=== PATIENT | female | born 1975 | race American Indian/Alaskan Native ===

== ENCOUNTER 2018-01-18 20:14 | Emergency (ER) | payer MEDICAID ==
[2018-01-18 20:19] VITALS: BP 122/68
--- NOTE | 2018-01-18 21:15 | XRay Report ---
FINAL REPORT PROCEDURE: XR WRIST 3+V LT TECHNIQUE: LEFT wrist radiographs, including AP, lateral, and oblique views. CPT 67604 HISTORY: severe pain, decreased rom COMPARISON: No prior studies are available for comparison. FINDINGS: Fracture (s) and/or Dislocation(s): None . Alignment: Normal . Joint space(s): Normal . Soft tissues: Normal . Bone mineralization: Normal . Foreign bodies: None . IMPRESSION: Normal Examination.
[2018-01-19] MEDS ORDERED: TYLENOL PO ONE (00:39)
[2018-01-19] MEDS ORDERED: ULTRAM PO ONE (00:39)
--- NOTE | 2018-01-19 00:39 | Emergency Department Report ---
Upper Extremity - HPI Chief Complaint: Extremity Injury, Upper Stated Complaint: LEFT ARM PAIN Time Seen by Provider: 01/19/18 00:22 Upper Extremity: Left Forearm, Left Wrist Occurred When: 4 Days Mechanism: Unsure Severity: moderate Symptoms: Yes Pain with Movement, No Deformity, No Limited Range of Movement, No Numbness, No Weakness, No Swelling, No Bruising/Ecchymosis, No Laceration or Abrasion Other History: This is a 42-year-old female, right-hand dominant, does a lot of heavy lifting for work, reports that she is not , presents to the ER with nontraumatic left medial distal forearm pain and wrist pain. The pain is sharp and electric-like in nature, and occasionally radiates to the left pinky. It increases with palpation, range of motion, body shop supervisor, and decreases with rest. No other injuries. No other complaints. ED Review of Systems ROS: Stated complaint: LEFT ARM PAIN Other details as noted in HPI Comment: All other systems reviewed and negative ED Past Medical Hx - Past Medical History Hx Asthma: Yes - Surgical History Additional Surgical History: tubiligation - Social History Smoking Status: Former Smoker Substance Use Type: Alcohol - Medications Home Medications: Home Medications Medication Instructions Recorded Confirmed Last Taken Type Acetaminophen [Tylenol Arthritis] 650 mg PO Q6HR PRN #30 tablet.er 01/19/18 Unknown Rx traMADol [Ultram 50 MG tab] 50 mg PO Q6HR PRN #15 tablet 01/19/18 Unknown Rx Upper Extremity Exam - Exam General: Vital signs noted. No distress. Alert and acting appropriately. 2+ pulses noted in the bilateral upper extremities. thumb opposition is intact to the left upper extremity, flexion, extension, circumduction intact to left wrist, appropriate capillary refill is noted, the lumbricals intact, compartments soft, no redness, pus or streaking. Sensation intact to light touch in the deltoid, median, radial, ulnar distribution Extraocular movements intact. Tongue midline. No facial droop. Facial sensation intact to light touch in the V1, V2, V3 distribution bilaterally. 5 and 5 strength in 4 extremities.. Sensation is intact to light touch in 4 extremities. Gait within normal limits. Head and Torso: No HEENT Abnormality, No Neck Tenderness, No Chest/Lungs Abnormality, No Abdominal Tenderness, No Back Tenderness Shoulder Exam: Yes Normal Range of Motion in Shoulder, No Shoulder Tenderness, No Clavicle Tenderness, No Shoulder Deformity, No AC Joint Tenderness Arm Exam: No Arm/Humerus Tenderness, No Arm Deformity Elbow: Yes Normal Range of Motion in Elbow, No Elbow Tenderness, No Elbow Deformity Forearm: Yes Pain with Pronation, Yes Pain with Supination, No Forearm Tenderness, No Forearm Deformity Wrist: Yes Wrist Tenderness, Yes Normal ROM in Wrist, No Wrist Deformity, No Snuffbox Tenderness, No Pain with Axial Thumb Compression Hand: Yes Normal ROM in Digit(s), No Hand Tenderness, No Hand Deformity, No Digit Tenderness, No Digit(s) Deformity, No Tendon Dysfunction CMS Exam: No Broken Skin, No Normal Distal Pulses, No Normal Capillary Refill, No Normal Distal Sensation ED Course Vital Signs 01/18/18 01/18/18 20:14 20:25 Temperature 98.4 F 98.4 F Pulse Rate 90 90 Respiratory 18 18 Rate Blood Pressure 122/68 122/68 O2 Sat by Pulse 96 100 Oximetry ED Medical Decision Making - Lab Data Vital Signs 01/18/18 01/18/18 01/19/18 20:14 20:25 00:48 Temperature 98.4 F 98.4 F Pulse Rate 90 90 Respiratory 18 18 18 Rate Blood Pressure 122/68 122/68 O2 Sat by Pulse 96 100 Oximetry - Radiology Data Radiology results: report reviewed, image reviewed X-ray of the left wrist: No fracture or dislocation - Medical Decision Making Differential diagnosis, including but not limited to: Sprain, strain, fracture, dislocation, tendinopathy, peripheral neuropathy, carpal tunnel Assessment and plan: 42-year-old female with distal forearm pain, mostly starting at the ulnar styloid process, no redness, pus or streaking, compartments soft, tendon function intact, no fracture or dislocation, neurologically intact, patient may benefit from outpatient occupational therapy. She will be placed in a volar splint, she will be given pain medication, and instructed to follow up with outpatient orthopedics or primary care. Critical care attestation.: If time is entered above; I have spent that time in minutes in the direct care of this critically ill patient, excluding procedure time. ED Disposition Clinical Impression: Left forearm pain Disposition: - TO HOME OR SELFCARE Is pt being admited?: No Does the pt Need Aspirin: No Condition: Stable Instructions: Tendinitis (ED) Additional Instructions: Rest, and avoid heavy lifting. Avoid strenuous physical activity. Take pain medication as directed. Follow-up with the primary care doctor orthopedist, gear design engineer, or sports medicine nonsurgical specialists as soon as possible for outpatient referral to occupational therapy. Return to the ER right away with new pain, worsened pain, migration of pain, weakness, numbness, unsteady gait, projectile vomiting, change in mental status, inability to tolerate liquid feeds. Referrals: MARK SANDS MD [Primary Care Provider] - 3-5 Days JOSE CEJA MD [Staff Physician] - 3-5 Days Forms: Work/School Release Form(ED)
== END 2018-01-19 02:00 | disposition home or self-care (01) ==
LOC: ED 20:14
DX: M79.632 Pain in left forearm (principal); M25.532 Pain in left wrist; J45.909 Unspecified asthma, uncomplicated; Z87.891 Personal history of nicotine dependence; Z98.51 Tubal ligation status; Z88.6 Allergy status to analgesic agent

== ENCOUNTER 2019-11-30 19:43 | Emergency (ER) | payer MEDICAID, OTHER ==
[2019-11-30 19:50] VITALS: BP 121/61
--- NOTE | 2019-11-30 21:12 | Event Note ---
ED Screening Note Date of service: 11/30/19 Time: 21:06 ED Screening Note: Patient is a A0 AA female who is s/p BTL 9 years ago presents to the ED with c/o heavy vaginal bleeding with LLQ abdominal pain x 3 days. Patient states that LMP was about 2 weeks and was normal. Patient states that vaginal bleeding worse in the morning and improves at day time. Patient denies dizziness, dysuria, vaginal discharge, diarrhea, headache, low back pain, headache, fever and chills. This initial assessment/diagnostic orders/clinical plan/treatment(s) is/are subject to change based on patients health status, clinical progression and re- assessment by fellow clinical providers in the ED. Further treatment and workup at subsequent clinical providers discretion. Patient/guardian urged not to elope from the ED as their condition may be serious if not clinically assessed and managed. Initial orders include: CBC, CMP, UA, Urine hCG, transvagianl US
[2019-11-30 23:27] LABS: Bilirubin,Urine NEG (Negative); Blood,Urine MOD (Negative); Color,Urine Yellow (Yellow); Mucus,Urine FEW /HPF; Protein,Urine <15 mg/dL mg/dL (Negative); Urobilinogen,Urine < 2.0 mg/dL (<2.0)
[2019-11-30 23:31] LABS: Basophils # (Auto) 0.1 K/mm3 (0.0-0.1); Basophils % (Auto) 1.4 % (0.0-1.8); Eosinophils # (Auto) 0.3 K/mm3 (0.0-0.4); Eosinophils % (Auto) 3.9 % (0.0-4.3); Hematocrit 38.3 % (30.3-42.9); Hemoglobin 12.4 gm/dl (10.1-14.3); Lymphocytes # (Auto) 2.9 K/mm3 (1.2-5.4); Lymphocytes % (Auto) 43.6 % (13.4-35.0); Mean Corpuscular HGB Conc 32 % (30-34); Mean Corpuscular Volume 86 fl (79-97); Monocytes # (Auto) 0.4 K/mm3 (0.0-0.8); Monocytes % (Auto) 6.6 % (0.0-7.3); Platelet Count 254 K/mm3 (140-440); Red Blood Count 4.45 M/mm3 (3.65-5.03); Red Cell Distribution Width 13.3 % (13.2-15.2)
[2019-11-30 23:47] LABS: Alanine Aminotransferase 12 units/L (7-56); Albumin 4.3 g/dL (3.9-5); BUN/Creatinine Ratio 13; Blood Urea Nitrogen 10 mg/dL (7-17); Calcium 10.1 mg/dL (8.4-10.2); Hemolysis Index 11
--- NOTE | 2019-12-01 01:41 | Ultrasound Report ---
Pelvic Ultrasound HISTORY: pelvic pain, vaginal bleeding. TECHNIQUE: Grayscale and color imaging performed. COMPARISON: None FINDINGS: Uterus measures 8.2 x 5.5 x 7.2 cm with endometrial complex measuring 9 mm. Both ovaries ar e normal size and appearance with preserved blood flow. No acute abnormality identified. No free flui d. IMPRESSION: Unremarkable exam. Signer Name: Ricky Quevedo MD Signed: 12/01/2019 1:36 AM Workstation Name: [id number]
[2019-12-01] MEDS ORDERED: traMADol 50 MG TAB PO ONE (01:49)
--- NOTE | 2019-12-01 01:54 | Emergency Department Report ---
ED Abdominal Pain HPI - General Chief Complaint: Abdominal Pain Stated Complaint: LOWER ABDOMEN PAIN/BLEEDING Time Seen by Provider: 12/01/19 01:08 Source: patient Mode of arrival: Ambulatory Limitations: No Limitations - History of Present Illness Initial Comments: Patient is a A0 AA female who is s/p BTL 9 years ago presents to the ED with c/o heavy vaginal bleeding with LLQ abdominal pain x 3 days. Patient states that LMP was about 2 weeks and was normal. Patient states that vaginal bleeding worse in the morning and improves at day time. Patient denies dizziness, dysuria, vaginal discharge, diarrhea, headache, low back pain, headache, fever and chills. symptoms rated at 3/10 , symptoms exacerbated by palpation, syptoms relieved by nothing tried. MD Complaint: abdominal pain Onset/Timin -: days(s) Location: LLQ Radiation: LLQ Migration to: LUQ Severity: moderate Severity scale (0 -10): 4 Quality: aching Improves With: nothing Worsens With: nothing Associated Symptoms: dysuria. denies: nausea, vomiting, diarrhea, fever, chills, constipation - Related Data LMP (females 10-50): 1 month Previous Rx's Medication Instructions Recorded Last Taken Type Acetaminophen [Tylenol Arthritis] 650 mg PO Q6HR PRN #30 tablet.er 01/19/18 Unknown Rx traMADoL [Ultram 50 MG tab] 50 mg PO Q6HR PRN #15 tablet 01/19/18 Unknown Rx Fluconazole [Diflucan TAB] 150 mg PO ONCE #1 tablet 12/01/19 Unknown Rx Ibuprofen [Motrin 800 MG tab] 800 mg PO Q8HR PRN #30 tablet 12/01/19 Unknown Rx Nitrofurantoin [place]/M-Cryst 100 mg PO BID 7 Days #14 capsule 12/01/19 Unknown Rx [Macrobid CAP] Allergies Allergy/AdvReac Type Severity Reaction Status Date / Time aspirin Allergy Unknown Verified 01/18/18 20:28 ED Review of Systems ROS: Stated complaint: LOWER ABDOMEN PAIN/BLEEDING Other details as noted in HPI Constitutional: denies: chills, fever Eyes: denies: eye pain, eye discharge, vision change ENT: denies: ear pain, throat pain Respiratory: denies: cough, shortness of breath, wheezing Cardiovascular: denies: chest pain, palpitations Endocrine: no symptoms reported Gastrointestinal: abdominal pain (llq), vomiting. denies: nausea, diarrhea Genitourinary: dysuria, frequency. denies: urgency, discharge Musculoskeletal: denies: back pain, joint swelling, arthralgia Skin: denies: rash, lesions Neurological: denies: headache, weakness, paresthesias Psychiatric: denies: anxiety, depression Hematological/Lymphatic: denies: easy bleeding, easy bruising ED Past Medical Hx - Past Medical History Hx Asthma: Yes - Surgical History Additional Surgical History: tubiligation - Social History Smoking Status: Never Smoker Substance Use Type: None - Medications Home Medications: Home Medications Medication Instructions Recorded Confirmed Last Taken Type Acetaminophen [Tylenol Arthritis] 650 mg PO Q6HR PRN #30 tablet.er 01/19/18 Unknown Rx traMADoL [Ultram 50 MG tab] 50 mg PO Q6HR PRN #15 tablet 01/19/18 Unknown Rx Fluconazole [Diflucan TAB] 150 mg PO ONCE #1 tablet 12/01/19 Unknown Rx Ibuprofen [Motrin 800 MG tab] 800 mg PO Q8HR PRN #30 tablet 12/01/19 Unknown Rx Nitrofurantoin [place]/M-Cryst 100 mg PO BID 7 Days #14 capsule 12/01/19 Unknown Rx [Macrobid CAP] ED Physical Exam - General Limitations: No Limitations General appearance: alert, in no apparent distress - Head Head exam: Present: atraumatic, normocephalic - Eye Eye exam: Present: normal appearance, PERRL, EOMI Pupils: Present: normal accommodation - ENT ENT exam: Present: mucous membranes moist - Neck Neck exam: Present: normal inspection - Respiratory Respiratory exam: Present: normal lung sounds bilaterally. Absent: respiratory distress - Cardiovascular Cardiovascular Exam: Present: regular rate, normal rhythm, normal heart sounds. Absent: systolic murmur, diastolic murmur, rubs, gallop - GI/Abdominal GI/Abdominal exam: Present: soft, tenderness (LLQ ), normal bowel sounds. Absent: distended, guarding, rebound, rigid, bruit, hernia - Rectal Rectal exam: Present: deferred - Extremities Exam Extremities exam: Present: normal inspection, full ROM - Back Exam Back exam: Present: normal inspection, full ROM, CVA tenderness (L). Absent: tenderness, CVA tenderness (R), vertebral tenderness - Neurological Exam Neurological exam: Present: alert, oriented X3, CN II-XII intact, normal gait - Psychiatric Psychiatric exam: Present: normal affect, normal mood - Skin Skin exam: Present: warm, dry, intact, normal color. Absent: rash ED Course Vital Signs 11/30/19 19:48 Temperature 97.8 F Pulse Rate 88 Respiratory 20 Rate Blood Pressure 121/61 O2 Sat by Pulse 97 Oximetry ED Medical Decision Making - Lab Data Result diagrams: 11/30/19 23:11 11/30/19 23:11 Labs 11/30/19 11/30/19 11/30/19 22:30 23:11 23:11 WBC 6.7 RBC 4.45 Hgb 12.4 Hct 38.3 MCV 86 MCH 28 MCHC 32 RDW 13.3 Plt Count 254 Lymph % (Auto) 43.6 H [place] % (Auto) 6.6 Eos % (Auto) 3.9 Baso % (Auto) 1.4 Lymph # 2.9 [place] # 0.4 Eos # 0.3 Baso # 0.1 Seg Neutrophils % 44.5 Seg Neutrophils # 3.0 Sodium 140 Potassium 4.3 Chloride 103.0 Carbon Dioxide 26 Anion Gap 15 BUN 10 Creatinine 0.8 Estimated GFR > 60 BUN/Creatinine Ratio 13 Glucose 92 Calcium 10.1 Total Bilirubin < 0.20 AST 17 ALT 12 Alkaline Phosphatase 57 Total Protein 7.7 Albumin 4.3 Albumin/Globulin Ratio 1.3 HCG, Qual Urine Color Yellow Urine Turbidity Slightly-cloudy Urine pH 7.0 Ur Specific [place] 1.020 Urine Protein <15 mg/dl Urine Glucose (UA) Neg Urine Ketones Neg Urine Blood Mod Urine Nitrite Neg Urine Bilirubin Neg Urine Urobilinogen < 2.0 Ur Leukocyte Esterase Mod Urine WBC (Auto) 16.0 H Urine RBC (Auto) 11.0 U Epithel Cells (Auto) 4.0 Urine Mucus Few Urine Yeast (Budding) 2+ 11/30/19 23:11 WBC RBC Hgb Hct MCV MCH MCHC RDW Plt Count Lymph % (Auto) [place] % (Auto) Eos % (Auto) Baso % (Auto) Lymph # [place] # Eos # Baso # Seg Neutrophils % Seg Neutrophils # Sodium Potassium Chloride Carbon Dioxide Anion Gap BUN Creatinine Estimated GFR BUN/Creatinine Ratio Glucose Calcium Total Bilirubin AST ALT Alkaline Phosphatase Total Protein Albumin Albumin/Globulin Ratio HCG, Qual Negative Urine Color Urine Turbidity Urine pH Ur Specific [place] Urine Protein Urine Glucose (UA) Urine Ketones Urine Blood Urine Nitrite Urine Bilirubin Urine Urobilinogen Ur Leukocyte Esterase Urine WBC (Auto) Urine RBC (Auto) U Epithel Cells (Auto) Urine Mucus Urine Yeast (Budding) - Radiology Data Radiology results: report reviewed, image reviewed Findings [facility] [address] [place] [address] Ultrasound Report Signed Patient: RYAN COLEY MR #: [id number] : 1975 Acct:[id number] Age/Sex: 43 / F ADM Date: 11/30/19 Loc: ED Attending Dr: Ordering Physician: GOLDEN BRIGGS Date of Service: 11/30/19 Procedure(s): US pelvic complete Accession Number(s): [id number] cc: GOLDEN BRIGGS Pelvic Ultrasound HISTORY: pelvic pain, vaginal bleeding. TECHNIQUE: Grayscale and color imaging performed. COMPARISON: None FINDINGS: Uterus measures 8.2 x 5.5 x 7.2 cm with endometrial complex measuring 9 mm. Both ovaries are normal size and appearance with preserved blood flow. No acute abnormality identified. No free fluid. IMPRESSION: Unremarkable exam. Signer Name: Ricky Quevedo MD Signed: 12/01/2019 1:36 AM Workstation Name: [id number] Transcribed By: JW Dictated By: Ricky Quevedo MD Electronically Authenticated By: Ricky Qeuvedo MD Signed Date/Time: 12/01/19135 DD/ 5 TD/TT: - Medical Decision Making ua: pos for leuk, wbc, rbc, polina, plan tx for UTI, US: normal no mass no fibroid, no ovarian cyst. rx: macrobid, diflucan. follow up with pcp in 2-3 days Critical care attestation.: If time is entered above; I have spent that time in minutes in the direct care of this critically ill patient, excluding procedure time. ED Disposition Clinical Impression: Abnormal uterine bleeding (AUB) UTI (urinary tract infection) Qualifiers: Urinary tract infection type: acute cystitis Hematuria presence: without hematuria Qualified Code(s): N30.00 - Acute cystitis without hematuria Disposition: TO HOME OR SELFCARE Is pt being admited?: No Does the pt Need Aspirin: No Condition: Stable Instructions: Urinary Tract Infection in Women (ED), Dysmenorrhea (ED) Prescriptions: Fluconazole [Diflucan TAB] 150 mg PO ONCE #1 tablet Nitrofurantoin [place]/M-Cryst [Macrobid CAP] 100 mg PO BID 7 Days #14 capsule Ibuprofen [Motrin 800 MG tab] 800 mg PO Q8HR PRN #30 tablet PRN Reason: pain Referrals: JENNIE ANDUJAR MD [Staff Physician] - 3-5 Days Forms: Work/School Release Form(ED) Time of Disposition: 01:59
== END 2019-12-01 02:12 | disposition home or self-care (01) ==
LOC: ED 19:43
DX: N39.0 Urinary tract infection, site not specified (principal); N93.8 Other specified abnormal uterine and vaginal bleeding; J45.909 Unspecified asthma, uncomplicated; Z98.51 Tubal ligation status; Z79.899 Other long term (current) drug therapy; Z88.6 Allergy status to analgesic agent
CPT/HCPCS: 36415; 76856; 80053; 81001; 84703; 85025; 87086